=== PATIENT | male | born 1950 | race Caucasian/White ===

== ENCOUNTER 2020-04-27 07:36 | Inpatient (IN) ==
[2020-04-21 14:56] LABS: Appearance,Urine CLEAR; Bilirubin,Urine NEG (NEG); Color,Urine YELLOW; Culture Indicated,Urine NO; Glucose,Urine (UA) NEGATIVE (NEG); Ketones,Urine NEG (NEG); Leukocyte Esterase,Urine NEG /uL (NEG); Nitrate,Urine NEG (NEG); Protein,Urine NEG (NEG); Specific Gravity,Urine 1.006 (1.000-1.035); Urine Blood NEG mg/dL (<0.03); Urobilinogen,Urine NEG (NEG)
[2020-04-21 15:25] LABS: Basophils # (Auto) 0.03 K/mcL (0.00-0.30); Basophils % (Auto) 0.4 % (0.0-2.0); Eosinophils # (Auto) 0.05 K/mcL (0.00-0.70); Eosinophils % (Auto) 0.6 % (0.0-7.0); Granulocytes % (Auto) 63.6 % (38.0-78.0); Hematocrit 45.2 % (40.1-51.0); Hemoglobin 15.4 g/dL (13.7-17.5); Lymphocytes # (Auto) 2.37 K/mcL (1.50-4.80); Lymphocytes % (Auto) 28.8 % (15.5-49.0); Mean Cell Volume 94.4 fL (80.0-100.0); Mean Corpuscular HGB Conc 34.1 g/dL (31.0-36.0); Mean Platelet Volume 10.3 fL (7.4-10.4); Monocytes # (Auto) 0.54 K/mcL (0.10-0.90); Monocytes % (Auto) 6.6 % (1.0-12.0); Platelet Count 323 K/mcL (140-440); RBC 4.79 M/mcL (4.63-6.08); Red Cell Distribution Width 13.4 % (11.5-14.5); WBC 8.2 K/mcL (4.50-11.00)
[2020-04-21 15:41] LABS: ALT/SGPT 33 U/l (0-40); AST/SGOT 34 U/l (0-37); Albumin 4.2 gm/dL (3.2-5.2); Albumin/Globulin Ratio 1.2 (1.0-2.3); Alkaline Phosphatase 59 U/L (39-117); Bilirubin,Total 0.6 mg/dL (0.0-1.0); Blood Urea Nitrogen 11 mg/dl (8-23); Calcium 9.8 mg/dl (8.6-10.4); Carbon Dioxide 22 mmol/L (22-30); Chloride 100 mmol/L (96-108); Globulin 3.5 gm/dL (2.2-3.7); Glomerular Filtration Rate 92; Glucose 100 mg/dL (70-105)
[2020-04-21 15:52] LABS: Estimated Average Glucose(eAG) 114 mg/dL; Hemoglobin A1C 5.6 % HGB (4.0-6.0)
[~2020-04-27 07:36] MED LIST: CELECOXIB 200 MG CAPSULE PO SCH; IPRATROPIUM/ALBUTEROL 3 ML AMPUL.NEB NEB PRN; PREGABALIN 75 MG CAPSULE PO SCH; SCOPOLAMINE 1 PATCH PATCH TOPICAL PRN; ceFAZolin 2 GM in DEXTROSE 5% IN WATER 50 ML IV SCH; oxyCODONE 10 MG TAB.ER.12H PO SCH
[2020-04-27] MEDS ORDERED: fentaNYL 250 MCG/5 ML VIAL IV ONE (11:33)
[2020-04-27] MEDS ORDERED: KETAMINE 100 MG/ML ML ONE (11:33)
[2020-04-27] MEDS ORDERED: ePHEDrine 50 MG/ML AMPUL IV ONE (11:33)
[2020-04-27] MEDS ORDERED: DEXAMETHASONE 10 MG/ML VIAL ONE (11:33)
[2020-04-27] MEDS ORDERED: LIDOCAINE HCL/PF 100 MG/5 ML SYRINGE IV ONE (11:33)
[2020-04-27] MEDS ORDERED: SUCCINYLCHOLINE 20 MG/ML ML IV ONE (11:33)
[2020-04-27] MEDS ORDERED: ONDANSETRON 4 MG/2 ML VIAL ONE (11:33)
[2020-04-27] MEDS ORDERED: PROPOFOL 200 MG/20 ML VIAL IV ONE (11:33)
[2020-04-27] MEDS ORDERED: TRANEXAMIC ACID 1,000 MG/10 ML VIAL IV ONE (11:33)
[2020-04-27] MEDS ORDERED: ONDANSETRON 4 MG/2 ML VIAL IV PRN ×2 (12:56→13:12)
[2020-04-27] MEDS ORDERED: diphenhydrAMINE 50 MG/ML VIAL IV PRN (12:56)
[2020-04-27] MEDS ORDERED: PROMETHAZINE 25 MG/ML VIAL IV PRN (12:56)
[2020-04-27] MEDS ORDERED: LACTATED RINGERS 250 ML IV PRN (12:56)
[2020-04-27] MEDS ORDERED: MEPERIDINE 25 MG/ML SYRINGE IV PRN (12:56)
[2020-04-27] MEDS ORDERED: ACETAMINOPHEN 1,000 MG/100 ML BOTTLE IV ONE (12:56)
[2020-04-27] MEDS ORDERED: NALOXONE HCL 0.4 MG/ML VIAL IV PRN (12:56)
[2020-04-27] MEDS ORDERED: IPRATROPIUM/ALBUTEROL 3 ML AMPUL.NEB NEB PRN (12:56)
[2020-04-27] MEDS ORDERED: BUPIVACAINE W/EPI 0.5% 50 ML VIAL IJ ONE (13:00)
[2020-04-27] MEDS ORDERED: LACTATED RINGERS 1,000 ML IV SCH (13:00)
[2020-04-27] MEDS ORDERED: MAGNESIUM HYDROXIDE 30 ML ORAL.SUSP PO PRN (13:12)
[2020-04-27] MEDS ORDERED: BISACODYL 10 MG SUPP.RECT PR PRN (13:12)
[2020-04-27] MEDS ORDERED: POLYETHYLENE GLYCOL 3350 17 GM PACKET PO PRN (13:12)
[2020-04-27] MEDS ORDERED: BENZOCAINE/MENTHOL 1 LOZENGE PO PRN (13:12)
[2020-04-27] MEDS ORDERED: TRANEXAMIC ACID 1,000 MG/10 ML VIAL IV SCH (13:12)
[2020-04-27] MEDS ORDERED: FLEETS ADULT ENEMA PR PRN (13:12)
--- NOTE | 2020-04-27 13:12 | Brief Operative Note ---
Brief Operative Note Date of procedure: 04/27/20 Pre-op diagnosis: Left shoulder failed hemiarthroplasty Post-op diagnosis: same Procedure: Revision of failed left constantin to reverse total shoulder arthroplasty with removal of constantin Grafts/Implants: Yes (Tornier 6 stem, std tray, +6 poly, 25 lat baseplate, 36 eccentric gleno) Anesthesia: GETA Findings: absent cuff, atrophied deltoid Complications: none Surgeon: Clive Loomis Radiology Orderly: Dallas Canela Estimated blood loss (cc): 150 Specimens Removed/Pathology: other (hemiarthroplasty-discarded) Condition: stable Disposition: PACU
[2020-04-27] MEDS: fentaNYL 100 MCG/2 ML VIAL IV PRN ×8 (13:48→14:30)
[2020-04-27] MEDS ORDERED: LORazepam 2 MG/ML VIAL IV ONE (14:50)
--- NOTE | 2020-04-27 14:52 | XRay Report ---
CLINICAL INFORMATION: Post-Op Total Shoulder COMPARISON: None. FINDINGS: Total shoulder arthroplasty is anatomically aligned. No osseous abnormalities. Gas is soft tissue swelling seen as expected IMPRESSION: Negative Interpreted and Authenticated by: Marco Antonio Arita 04/27/20
[2020-04-27] MEDS ORDERED: HYDROmorphone 0.5 MG/0.5 ML SYRINGE ONE (15:10)
[2020-04-27] MEDS: 0.9 % SODIUM CHLORIDE 1,000 ML IV SCH (16:27)
[2020-04-27] MEDS: 0.9 % SODIUM CHLORIDE 10 ML SYRINGE IV SCH ×2 (16:28→21:51)
[2020-04-27] MEDS: HYDROmorphone 1 MG/ML SYRINGE IV PRN ×3 (16:32→20:10)
[2020-04-27] MEDS: oxyCODONE/APAP 5/325MG TABLET PO PRN ×2 (17:01→21:55)
[2020-04-27] MEDS: ceFAZolin 1 GM VIAL IV SCH (18:57)
[2020-04-27] MEDS ORDERED: traZODone HCL 50 MG TABLET PO SCH (21:00)
[2020-04-27] MEDS ORDERED: SENNOSIDES 1 TABLET PO SCH (21:00)
[2020-04-27] MEDS: DOCUSATE SODIUM 100 MG CAPSULE PO SCH (21:51)
[2020-04-28] MEDS: 0.9 % SODIUM CHLORIDE 1,000 ML IV SCH ×2 (01:50→09:35)
[2020-04-28] MEDS: oxyCODONE/APAP 5/325MG TABLET PO PRN ×3 (01:57→09:56)
[2020-04-28] MEDS: HYDROmorphone 1 MG/ML SYRINGE IV PRN (05:06)
[2020-04-28] MEDS: ceFAZolin 1 GM VIAL IV SCH (05:10)
[2020-04-28] MEDS ORDERED: ceFAZolin 1 GM VIAL ONE (05:14)
[2020-04-28] MEDS: 0.9 % SODIUM CHLORIDE 10 ML SYRINGE IV SCH (05:58)
--- NOTE | 2020-04-28 08:34 | Discharge Plan ---
Discharge Instructions - TSA Patient Instructions Total Shoulder Protocol: Leave immobilizer in place except for bathing and ROM. Abduction pillow. Continue to wear sling until seen by physician. Codman Pendulum : These exercises use momentum produced by your body to move your shoulder joint. Bend your knees and shift your weight to your front leg, then back, allowing your arm to swing in the same directions. Using the same technique, alternately shift your weight between your right and left legs, allowing your arm to swing from side to side. These exercises are also performed in counterclockwise and clockwise circular motions. Typically these exercises are performed several times per day, for a set number repetitions or minutes, such as 20 times in a row or 5 minutes at a time. Dressing Care: Other Additional Dressing Instructions: Leave silver dressing on 7-14 days, ok to shower with dressing on Discharge Plan Patient/Caregiver Discharge Instructions Activity: non-weight bearing Diet: Regular Diet Prescriptions: New hydrocodone-acetaminophen 10-325 mg Tablet 1 - 2 tab PO Q4H PRN (Reason: Pain) Qty: 60 RF: 0 No Action Anoro Ellipta 62.5-25 mcg/actuation blister with device 1 inh INHALATION QDAY RF: 0 tramadol 50 mg tablet 50 mg PO Q6HP PRN (Reason: Pain) RF: 0 trazodone 50 mg tablet 50 mg PO HS RF: 0 albuterol sulfate [Ventolin HFA] 90 mcg/actuation HFA aerosol inhaler 2 puff INHALATION Q6HP PRN (Reason: Shortness Of Breath) Qty: 18 RF: 2 losartan 50 mg tablet 50 mg PO DAILY RF: 0 amlodipine 10 mg tablet 10 mg PO DAILY RF: 0 Other Ambulatory Orders: Brace/Splint (ONCE) Location: None Selected Ordered By: Clive Loomis [facility] [place] - [facility] (Routine) Location: None Selected Ordered By: Clive Loomis Follow Up Plan Follow up with: Yoshi Lind PA-C [Physician Business Analyst Project Manager] - 05/12/20 9:20 am Patient Disposition: Home, Self-Care Discharge Orders: Discharge Order (Routine); Ordered 04/28/20 Ordered By: Clive Loomis
--- NOTE | 2020-04-28 08:38 | Orthopedic Progress Note ---
SUBJECTIVE Subjective Patient information: Note initiated : 04/28/20 at 8:36 am Service Date, if different from initiated Date: [] Patient: Norberto Carroll 69 y/o M admitted on 04/27/20 for Left Reverse Total Shoulder Arthroplasty with. Chief Complaint: [] pain controlled, only c/o OSORIO Constitutional Vitals: Vital Signs Temp Pulse Resp BP Pulse Ox 99.0 F 80 16 146/98 94 04/28/20 08:00 04/28/20 08:00 04/28/20 08:00 04/28/20 08:00 04/28/20 08:00 Period Temp Pulse Resp BP Sys/Bates Pulse Ox Last 24 Hr 97.3 F-99.0 F 65-96 14-21 92-153/41-98 88-100 Intake and Output 04/27/20 04/28/20 04/28/20 21:59 05:59 13:59 Intake Total 600 1528 Output Total 800 1800 Balance -200 -272 Weight 157 lb 8 oz Intake & Output: Intake & Output 04/27/20 04/28/20 04/28/20 21:59 05:59 13:59 Intake Total 600 1528 Output Total 800 1800 Balance -200 -272 Weight 157 lb 8 oz Intake: IV 100 938 Sodium Chloride 0.9% 1,000 ml @ 938 100 mls/hr IV .Q10H [facility] Rx#: [id number] Oral 590 IV - Manual Only 400 Other 100 Output: Urine Catheter Amount 600 Void Amount 200 1800 Other: Meal tuna salad & crackers Percent of Meal Consumed 50% Feeding Ability Assist with Tray Set Up Urine Appearance Clear Clear Urine Color Bright Yellow Bright Yellow Urine Odor Normal OBJ DATA Labs CBC & Chem 7: 04/21/20 12:05 04/21/20 12:05 Meds: Medications Amlodipine Besylate (Norvasc) 10 mg PO DAILY RENU Bisacodyl (Dulcolax) 10 mg NC Q2-3DAYS PRN PRN Reason: Constipation Docusate Sodium (Colace) 100 mg PO BID [facility] Last Admin: 04/27/20 21:51 Dose: 100 mg Documented by: Hydromorphone HCl (Dilaudid) 0 mg IV Q2HP PRN; Protocol PRN Reason: Per Pain Protocol Last Admin: 04/28/20 05:06 Dose: 1 mg Documented by: Sodium Chloride (Sodium Chloride 0.9%) 1,000 mls @ 100 mls/hr IV .Q10H [facility] Last Admin: 04/28/20 01:50 Dose: 100 mls/hr Documented by: Losartan Potassium (Cozaar) 50 mg PO DAILY [facility] Magnesium Hydroxide (Milk Of Magnesia) 30 ml PO BIDP PRN PRN Reason: Constipation Ondansetron HCl (Zofran) 4 mg IV Q4HP PRN; Protocol PRN Reason: Nausea And Vomiting Oxycodone/Acetaminophen (Percocet 5-325 Mg) 0 tab PO Q4HP PRN; Protocol PRN Reason: Per Pain Protocol Last Admin: 04/28/20 05:58 Dose: 2 tab Documented by: Umeclidinium- Vilanterol [Anoro Ellipta] 62.5-25 Mcg /Act Inhaler 1 dose INH DAILY [facility] Pneumococcal Polyvalent Vaccine (Pneumovax 23) 0.5 ml IM .ONCE ONE Stop: 04/28/20 10:01 Polyethylene Glycol (Miralax) 17 gm PO DAILYP PRN PRN Reason: Constipation Senna (Senokot) 2 tab PO [facility] Last Admin: 04/27/20 21:51 Dose: 2 tab Documented by: Sodium Biphosphate/Sodium Phosphate (Fleets Adult) 1 dose NC Q3-4DAYS PRN PRN Reason: Constipation Sodium Chloride (Saline Flush) 10 ml IV Q8 [facility] Last Admin: 04/28/20 05:58 Dose: Not Given Documented by: Throat Lozenges (Cepacol) 1 lozenge PO PRN PRN PRN Reason: Sore Throat Trazodone HCl (Desyrel) 50 mg PO [facility] Last Admin: 04/27/20 21:50 Dose: 50 mg Documented by: A/P Assessment and plan (1) Status post reverse total shoulder replacement: Status: Acute Comment: POD#1-stable d/c home Time Spent With Patient Time: Total time spent is greater than 50% in coordination of care (as documented) at patient's floor/unit and/or counseling patient:
--- NOTE | 2020-04-28 08:42 | Operative Note ---
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 PROCEDURE PERFORMED: Revision left total shoulder arthroplasty with removal of the hemiarthroplasty with revision to a reverse total shoulder arthroplasty placing a Tornier Aequalis Ascend Flex size 6 long humeral stem, a zero standard high-eccentricity tray, a +6 polyethylene insert on a 25 lateralized baseplate with a 36 eccentric glenosphere. SURGEON: Clive Loomis M.D. MENDING CARRIER: Dallas Canela PA-C. The PA's assistance was required for the safe and efficient completion of the entire case. This provider's expertise and technical skill were required throughout the case. The PA assisted with preoperative coordination, intraoperative retraction, wound closure, dressing and splint application, as well as postoperative documentation and care coordination. ANESTHESIA: General. DRAINS: None. SPECIMENS REMOVED: Hemiarthroplasty component which was discarded. BLOOD LOSS: 200 mL. COMPLICATIONS: None. POSTOPERATIVE CONDITION: Stable. INDICATIONS FOR SURGERY: This is a 69-year-old male who has had longstanding surgical history with the left shoulder with multiple surgical procedures done. The latest being a cuff tear arthropathy hemiarthroplasty several years ago. He has done poorly since then with pain and weakness. FINDINGS AT SURGERY: He had absent rotator cuff. Post implantation showed stable implant. There was significant deltoid atrophy. PROCEDURE IN DETAIL: The patient had been seen preoperatively. Informed consent had been obtained after discussion of risks and benefits of surgery. Risks including, but not limited to, bleeding; infection; injury to nerves, blood vessels, other surrounding structures; anesthetic risks; incomplete or no resolution of symptoms; continued pain, weakness, stiffness; possible dislocation; possible fracture; possibility of needing further revision; possibility of having no further surgical options when this fails. He understood and wished to proceed. Correct operative site was marked and then patient was taken to the operating room. General anesthesia was induced. He was carefully positioned in the beach chair position and pressure points carefully padded. Ioban was used to cover all skin surfaces and then his previous deltopectoral incision was made with a scalpel through skin and subcutaneous tissue. His deltoid was very scarred and atrophied. We dissected, what as best could be determined, the deltopectoral interval. Once I felt I was deep to the deltoid, I then had to start dissecting it off of the scar tissue underneath. Once I had a plane developed, I started working with a Villa elevator to develop the subdeltoid space. Once I had reasonable exposure, I then placed the deltoid retractor. I identified the coracoid process and what I felt to be was the conjoined tendon. I dissected deep to this and then placed a blue handle retractor. There was absent cuff tissue. There was a pseudocapsule around the joint. This was incised, which was a very thin layer, and the joint was visualized. There was no rotator cuff visible. I released around the medial neck of the implant and then dislocated the humeral head out anteriorly. A saw was used to make cuts along implant and then fishmouth was used to dislodge it. I then started initially with a canal-finding hand lacer and then sounders. I went up to a size 7 on the sounders. I then started broaching and I went up to a size 7 broach and calcar planed. A smooth cut protector was placed. We then proceeded to expose the glenoid, subluxing the humerus posteriorly. What remained of labrum was excised circumferentially, and I released capsule circumferentially with the Bovie, carefully staying right on bone. Once I had adequate glenoid exposure, we then used the 10 degree cephalad angle drill guide. I placed this at the inferior margin of the glenoid. He had an extremely large and flattened out glenoid. If I went for the center of the glenoid it certainly would have impinged the notch inferiorly, so I had to take this significantly inferior until I was flush with the inferior margin. I drilled this with the ___ increased anteversion as he had some retroversion glenoid. We then reamed with a 25 reamer until I had full contact. I had cancellous bone on the inferior half of the ream and just contacting cortical bone on the superior segment. I then used the central peg reamer over top of the guide pin and the guide pin was removed. We drilled the central screw and then depth gauged. The 35 mm screw was chosen. The hole was tapped and then I irrigated copiously with Irrisept. After a minute, I irrigated copiously with pulse lavage and then advanced the baseplate down with the central screw 6.5 mm. Once this was fully seated, I then drilled the four peripheral screws. Angling these a little bit more posterior, I was able to get excellent long screws on the superior and inferior screws. Once we had fixation, this was a 25 lateralized baseplate, I went ahead and opened an eccentric glenosphere. This was placed with the eccentricity inferiorly. Again, to try and avoid notching ___. This was carefully aligned and impacted and then the screw advanced until it had fully tightened. We then re-exposed the proximal humerus. I placed a standard tray with a +6 insert. I tried to reduce the shoulder and it was too tight. This was presumably due to the inferior positioning of the glenosphere. I went ahead and downsized into a size 6 and impacted the stem down. I then calcar planed down onto the 6 and after carefully working the stem down and calcar planning, I felt I was just able to reduce the humerus, so I went ahead and exposed and removed the humeral trial. The definitive stem baseplate and insert were opened and assembled on the back table. I irrigated the humeral canal with Irrisept. After a minute, I pulse lavaged copiously saline. We then impacted the stem construct down until it was fully seated. I then reduced the shoulder with significant tension, but once reduced, it was very stable throughout range of motion. We irrigated copiously with Irrisept again, after a minute copiously with saline using pulse lavage, and then since there was no rotator cuff to repair, I just closed the deltopectoral interval with a running #1 Vicryl stitch. A final Irrisept irrigation was done, after a minute final pulse lavage, and then 2-0 Monocryl was used for subcutaneous, and the zip ties were used for skin. Sterile dressing was applied. Arm was placed in an abductor immobilizer. The patient was awakened, extubated, and transferred to recovery in stable condition. ARELIS:[email or web address] Job ID: [id number] Doc ID: [id number] Clive Loomis MD
[2020-04-28] MEDS: DOCUSATE SODIUM 100 MG CAPSULE PO SCH (08:48)
[2020-04-28] MEDS ORDERED: VILANTEROL INH SCH (09:00)
[2020-04-28] MEDS ORDERED: UMECLIDINIUM INH SCH (09:00)
[2020-04-28] MEDS ORDERED: LOSARTAN 50 MG TABLET PO SCH (09:00)
[2020-04-28] MEDS ORDERED: amLODIPine 10 MG TABLET PO SCH (09:00)
[2020-04-28] MEDS ORDERED: PNEUMOCOCCAL 23-VAL P-SAC VAC 0.5 ML SYRINGE IM ONE (10:00)
[2020-04-28] MEDS ORDERED: FLU VACC QS2020-21(6MOS UP)/PF 60 MCG/0.5 ML SYRINGE IM ONE (10:15)
== END 2020-04-28 11:20 | disposition home or self-care (01) | DRG 483 ==
LOC: MEDSUR 07:36
PROVIDERS: ADMIT Orthopaedic Surgery; ATTEND Orthopaedic Surgery

== ENCOUNTER 2024-05-06 18:15 | Inpatient (IN) ==
[2024-05-06] MEDS ORDERED: IOPAMIDOL 100 ML BOTTLE IV ONE (18:16)
[2024-05-06] MEDS: IPRATROPIUM/ALBUTEROL 3 ML AMPUL.NEB NEB ONE ×4 (19:05→20:35)
[2024-05-06] MEDS: methylPREDNISolone SOD SUCC 125 MG/2 ML VIAL IV ONE (19:05)
[2024-05-06 19:15] LABS: Basophils # (Auto) 0.03 K/mcL (0.00-0.30); Basophils % (Auto) 0.3 % (0.0-2.0); Eosinophils # (Auto) 0.11 K/mcL (0.00-0.70); Eosinophils % (Auto) 1.2 % (0.0-7.0); Hematocrit 38.6 % (40.1-51.0); Hemoglobin 12.9 g/dL (13.7-17.5); Lymphocytes # (Auto) 1.03 K/mcL (1.50-4.80); Lymphocytes % (Auto) 11.6 % (15.5-49.0); Mean Cell Volume 100.5 fL (80.0-100.0); Mean Corpuscular HGB Conc 33.4 g/dL (31.0-36.0); Monocytes # (Auto) 0.52 K/mcL (0.10-0.90); Monocytes % (Auto) 5.8 % (1.0-12.0); Neutrophils % (Auto) 81.1 % (38.0-78.0); Platelet Count 174 K/mcL (140-440); RBC 3.84 M/mcL (4.63-6.08); Red Cell Distribution Width 13.6 % (11.5-14.5); WBC 8.9 K/mcL (4.5-11.0)
[2024-05-06] MEDS: MAGNESIUM SULFATE 2 GM/50 ML BAG IV ONE (19:25)
[2024-05-06 19:33] LABS: Blood Urea Nitrogen 13 mg/dL (8-23); Calcium 9.3 mg/dL (8.6-10.4); Carbon Dioxide 27 mmol/L (22-30); Chloride 98 mmol/L (96-108); Glomerular Filtration Rate 85; Glucose 137 mg/dL (70-105); Potassium 3.9 mmol/L (3.3-5.1); Sodium 135 mmol/L (133-145)
[2024-05-06] MEDS: cefTRIAXone 2 GM in DEXTROSE 5% IN WATER 50 ML IV ONE (20:10)
[2024-05-06] MEDS: HYDROcodone/APAP 10/325MG TABLET PO ONE (20:21)
[2024-05-06] MEDS: HYDROcodone/APAP 5/325MG TABLET PO ONE (20:42)
[2024-05-06] MEDS: AZITHROMYCIN 500 MG in DEXTROSE 5% IN WATER 250 ML IV ONE (20:42)
[2024-05-06] MEDS ORDERED: ONDANSETRON 4 MG/2 ML VIAL IV PRN (23:32)
[2024-05-06] MEDS ORDERED: ALBUTEROL SULFATE 2.5 MG/3 ML NEBULIZER NEB PRN (23:32)
[2024-05-06] MEDS ORDERED: SENNOSIDES 1 TABLET PO PRN (23:32)
[2024-05-06] MEDS: IPRATROPIUM/ALBUTEROL 3 ML AMPUL.NEB NEB SCH (23:40)
[2024-05-06] MEDS: morphine 30 MG TAB.SR.12H PO SCH (23:44)
[2024-05-07] MEDS: traZODone HCL 100 MG TABLET PO PRN (00:14)
[2024-05-07] MEDS: morphine 30 MG TAB.SR.12H PO ONE (00:18)
[2024-05-07] MEDS: traZODone HCL 50 MG TABLET ONE (01:00)
[2024-05-07] MEDS: IPRATROPIUM/ALBUTEROL 3 ML AMPUL.NEB NEB ONE ×2 (03:00→07:46)
[2024-05-07] MEDS: 0.9 % SODIUM CHLORIDE 10 ML SYRINGE IV SCH (05:11)
[2024-05-07] MEDS: methylPREDNISolone SOD SUCC 125 MG/2 ML VIAL IV SCH (05:29)
[2024-05-07] MEDS: methylPREDNISolone SOD SUCC 125 MG/2 ML VIAL ONE (05:29)
[2024-05-07 05:30] LABS: ABG Methemoglobin 0.4 % (0.4-1.5); Basophils # (Auto) 0.01 K/mcL (0.00-0.30); Basophils % (Auto) 0.1 % (0.0-2.0); Eosinophils # (Auto) 0 K/mcL (0.00-0.70); Eosinophils % (Auto) 0 % (0.0-7.0); Hematocrit 38.1 % (40.1-51.0); Hemoglobin 12.8 g/dL (13.7-17.5); Lymphocytes # (Auto) 0.65 K/mcL (1.50-4.80); Lymphocytes % (Auto) 7.3 % (15.5-49.0); Mean Cell Volume 97.2 fL (80.0-100.0); Mean Corpuscular HGB Conc 33.6 g/dL (31.0-36.0); Mean Platelet Volume 9.4 fL (8.8-12.5); Monocytes # (Auto) 0.06 K/mcL (0.10-0.90); Monocytes % (Auto) 0.7 % (1.0-12.0); Neutrophils % (Auto) 91.7 % (38.0-78.0); Platelet Count 175 K/mcL (140-440); RBC 3.92 M/mcL (4.63-6.08); Red Cell Distribution Width 13.7 % (11.5-14.5); VBG Base Excess 2 (-2-3); VBG HCO3 27.8 mmol/L (24.0-28.0); VBG Oxygen Saturation 76.2 % (40.0-70.0); VBG PCO2 48.7 mmHg (41.0-51.0); VBG PH 7.37 U (7.32-7.42); VBG PO2 43.4 mmHg (25.0-40.0); VBG Total CO2 29.3 mmol/L (25.0-29.0); WBC 8.9 K/mcL (4.5-11.0)
[2024-05-07 05:54] LABS: ALT/SGPT 31 U/L (<40); AST/SGOT 31 U/L (<40); Albumin/Globulin Ratio 1.4 (1.0-2.3); Alkaline Phosphatase 41 U/L (39-117); Bilirubin,Direct 0.2 mg/dL (<0.3); Bilirubin,Total 0.5 mg/dL (0.1-1.0); Blood Urea Nitrogen 13 mg/dL (8-23); Calcium 9.1 mg/dL (8.6-10.4); Carbon Dioxide 28 mmol/L (22-30); Chloride 100 mmol/L (96-108); Globulin 2.8 gm/dL (2.2-3.7); Glomerular Filtration Rate 89; Glucose 199 mg/dL (70-105); Lactate Dehydrogenase 249 U/L (135-225); Phosphorous 2.2 mg/dL (2.5-4.5); Potassium 3.9 mmol/L (3.3-5.1); Sodium 137 mmol/L (133-145); Triglycerides 37 mg/dL (<150); Uric Acid 4.1 mg/dL (2.5-8.0)
[2024-05-07] MEDS: ENOXAPARIN 40 MG/0.4 ML SYRINGE SQ SCH (09:17)
[2024-05-07] MEDS: cefTRIAXone 1 GM VIAL IV SCH (09:17)
[2024-05-07] MEDS: DOCUSATE SODIUM 100 MG CAPSULE PO SCH (09:19)
[2024-05-07] MEDS: HYDROcodone/APAP 10/325MG TABLET PO PRN (09:23)
[2024-05-07] MEDS ORDERED: morphine 30 MG TAB.SR.12H PO PRN (10:43)
[2024-05-07] MEDS: morphine 4 MG/ML VIAL IV PRN (10:47)
[2024-05-07] MEDS: AZITHROMYCIN 500 MG in DEXTROSE 5% IN WATER 250 ML IV SCH (18:06)
[2024-05-07] MEDS: traZODone HCL 100 MG TABLET PO SCH (21:25)
[2024-05-07] MEDS: ATORVASTATIN 40 MG TABLET PO SCH (21:25)
[2024-05-08 06:35] LABS: Basophils # (Auto) 0.03 K/mcL (0.00-0.30); Basophils % (Auto) 0.2 % (0.0-2.0); Eosinophils # (Auto) 0 K/mcL (0.00-0.70); Eosinophils % (Auto) 0 % (0.0-7.0); Hematocrit 38.9 % (40.1-51.0); Hemoglobin 13.2 g/dL (13.7-17.5); Lymphocytes # (Auto) 0.67 K/mcL (1.50-4.80); Lymphocytes % (Auto) 3.6 % (15.5-49.0); Mean Corpuscular HGB Conc 33.9 g/dL (31.0-36.0); Mean Platelet Volume 10.2 fL (8.8-12.5); Monocytes # (Auto) 0.41 K/mcL (0.10-0.90); Monocytes % (Auto) 2.2 % (1.0-12.0); Neutrophils % (Auto) 93.4 % (38.0-78.0); Platelet Count 191 K/mcL (140-440); RBC 3.89 M/mcL (4.63-6.08); WBC 18.6 K/mcL (4.5-11.0)
[2024-05-08 07:11] LABS: ALT/SGPT 27 U/L (<40); AST/SGOT 27 U/L (<40); Albumin 3.9 gm/dL (3.2-5.2); Albumin/Globulin Ratio 1.3 (1.0-2.3); Alkaline Phosphatase 50 U/L (39-117); Bilirubin,Total 0.5 mg/dL (0.1-1.0); Blood Urea Nitrogen 22 mg/dL (8-23); Calcium 9.3 mg/dL (8.6-10.4); Carbon Dioxide 26 mmol/L (22-30); Chloride 100 mmol/L (96-108); Globulin 2.9 gm/dL (2.2-3.7); Glomerular Filtration Rate 94; Glucose 166 mg/dL (70-105); Potassium 3.7 mmol/L (3.3-5.1); Sodium 137 mmol/L (133-145)
[2024-05-08] MEDS: amLODIPine 5 MG TABLET PO SCH (09:36)
[2024-05-08] MEDS: Fluticasone-Umeclidin-Vilanter [Trelegy Ellipta] Inhaler INH SCH (10:00)
[2024-05-08] MEDS ORDERED: BISACODYL 5 MG TABLET PO PRN (12:40)
[2024-05-08] MEDS ORDERED: BISACODYL 10 MG SUPP.RECT PR PRN (13:29)
[2024-05-08] MEDS: BISACODYL 10 MG SUPP.RECT PR PRN (13:46)
[2024-05-08] MEDS: BISACODYL 10 MG SUPP.RECT PR ONE (13:52)
[2024-05-09 07:12] LABS: ALT/SGPT 34 U/L (<40); AST/SGOT 35 U/L (<40); Albumin/Globulin Ratio 1.5 (1.0-2.3); Alkaline Phosphatase 52 U/L (39-117); Bilirubin,Total 0.6 mg/dL (0.1-1.0); Blood Urea Nitrogen 23 mg/dL (8-23); Calcium 9.2 mg/dL (8.6-10.4); Carbon Dioxide 27 mmol/L (22-30); Chloride 99 mmol/L (96-108); Globulin 2.7 gm/dL (2.2-3.7); Glomerular Filtration Rate 94; Glucose 142 mg/dL (70-105); Potassium 3.7 mmol/L (3.3-5.1); Sodium 137 mmol/L (133-145)
[2024-05-09 07:34] LABS: Basophils # (Auto) 0.02 K/mcL (0.00-0.30); Basophils % (Auto) 0.1 % (0.0-2.0); Eosinophils # (Auto) 0 K/mcL (0.00-0.70); Eosinophils % (Auto) 0 % (0.0-7.0); Hematocrit 39.6 % (40.1-51.0); Hemoglobin 13.6 g/dL (13.7-17.5); Lymphocytes # (Auto) 0.55 K/mcL (1.50-4.80); Mean Cell Volume 99.5 fL (80.0-100.0); Mean Corpuscular HGB Conc 34.3 g/dL (31.0-36.0); Mean Platelet Volume 10.2 fL (8.8-12.5); Monocytes # (Auto) 0.48 K/mcL (0.10-0.90); Monocytes % (Auto) 2.7 % (1.0-12.0); Neutrophils % (Auto) 93.6 % (38.0-78.0); Platelet Count 231 K/mcL (140-440); RBC 3.98 M/mcL (4.63-6.08); Red Cell Distribution Width 14.2 % (11.5-14.5); WBC 18.1 K/mcL (4.5-11.0)
[2024-05-09] MEDS: PANTOPRAZOLE 40 MG PACKET PO SCH (07:51)
[2024-05-09] MEDS: LIDOCAINE 4% TOP PATCH TOPICAL SCH (09:25)
[2024-05-09] MEDS: 0.9 % SODIUM CHLORIDE 10 ML SYRINGE IV SCH (21:04)
[2024-05-10 06:51] LABS: Basophils # (Auto) 0.02 K/mcL (0.00-0.30); Basophils % (Auto) 0.2 % (0.0-2.0); Eosinophils # (Auto) 0.01 K/mcL (0.00-0.70); Eosinophils % (Auto) 0.1 % (0.0-7.0); Hematocrit 40.5 % (40.1-51.0); Hemoglobin 13.4 g/dL (13.7-17.5); Lymphocytes # (Auto) 0.55 K/mcL (1.50-4.80); Lymphocytes % (Auto) 4.6 % (15.5-49.0); Mean Cell Volume 101.5 fL (80.0-100.0); Mean Corpuscular HGB Conc 33.1 g/dL (31.0-36.0); Mean Platelet Volume 9.9 fL (8.8-12.5); Monocytes % (Auto) 3.3 % (1.0-12.0); Neutrophils % (Auto) 91.5 % (38.0-78.0); Platelet Count 213 K/mcL (140-440); RBC 3.99 M/mcL (4.63-6.08); Red Cell Distribution Width 14.3 % (11.5-14.5)
[2024-05-10 07:39] LABS: ALT/SGPT 42 U/L (<40); AST/SGOT 44 U/L (<40); Albumin 3.9 gm/dL (3.2-5.2); Albumin/Globulin Ratio 1.4 (1.0-2.3); Alkaline Phosphatase 73 U/L (39-117); Bilirubin,Total 0.8 mg/dL (0.1-1.0); Blood Urea Nitrogen 23 mg/dL (8-23); Calcium 9.1 mg/dL (8.6-10.4); Carbon Dioxide 27 mmol/L (22-30); Chloride 100 mmol/L (96-108); Globulin 2.7 gm/dL (2.2-3.7); Glomerular Filtration Rate 94; Glucose 131 mg/dL (70-105); Potassium 4.3 mmol/L (3.3-5.1); Sodium 137 mmol/L (133-145)
[2024-05-10] MEDS ORDERED: IPRATROPIUM/ALBUTEROL 3 ML AMPUL.NEB NEB PRN (10:11)
[2024-05-10] MEDS: ACETAMINOPHEN 325 MG TABLET PO PRN (10:26)
[2024-05-10] MEDS: LACTULOSE 20 GM/30 ML ORAL.SOL PO PRN (14:14)
[2024-05-11 06:47] LABS: ALT/SGPT 69 U/L (<40); AST/SGOT 53 U/L (<40); Albumin 3.7 gm/dL (3.2-5.2); Albumin/Globulin Ratio 1.5 (1.0-2.3); Alkaline Phosphatase 42 U/L (39-117); Basophils # (Auto) 0.01 K/mcL (0.00-0.30); Basophils % (Auto) 0.1 % (0.0-2.0); Bilirubin,Total 0.9 mg/dL (0.1-1.0); Blood Urea Nitrogen 28 mg/dL (8-23); Calcium 8.6 mg/dL (8.6-10.4); Carbon Dioxide 29 mmol/L (22-30); Chloride 100 mmol/L (96-108); Eosinophils # (Auto) 0 K/mcL (0.00-0.70); Eosinophils % (Auto) 0 % (0.0-7.0); Globulin 2.4 gm/dL (2.2-3.7); Glomerular Filtration Rate 100; Glucose 127 mg/dL (70-105); Hematocrit 39.4 % (40.1-51.0); Hemoglobin 13.5 g/dL (13.7-17.5); Lymphocytes # (Auto) 0.59 K/mcL (1.50-4.80); Lymphocytes % (Auto) 7.3 % (15.5-49.0); Mean Corpuscular HGB Conc 34.3 g/dL (31.0-36.0); Mean Platelet Volume 9.7 fL (8.8-12.5); Monocytes # (Auto) 0.47 K/mcL (0.10-0.90); Monocytes % (Auto) 5.8 % (1.0-12.0); Neutrophils % (Auto) 86.3 % (38.0-78.0); Platelet Count 210 K/mcL (140-440); Potassium 4.2 mmol/L (3.3-5.1); RBC 3.98 M/mcL (4.63-6.08); Red Cell Distribution Width 13.5 % (11.5-14.5); Sodium 137 mmol/L (133-145)
[2024-05-11] MEDS: HEPARIN SODIUM,PORCINE/PF 500 UNIT/5 ML SYRINGE IV ONE (10:15)
== END 2024-05-11 11:15 | disposition home health service (06) | DRG 190 ==
LOC: ED 18:15 → ICU 23:26
PROVIDERS: ADMIT Internal Medicine; ATTEND Internal Medicine